=== PATIENT | male | born 1985 | race Caucasian/White ===

== ENCOUNTER 2016-11-13 01:59 | Emergency (ER) | payer BC, OTHER ==
[2016-11-13 02:45] VITALS: BP 126/78; PULSE 79; TEMP 97.9; BMI 26.6
--- NOTE | 2016-11-13 02:59 | PDOC ---
History of Present Illness - History of Present Illness Initial Comments: 11/13/16 03:14 The patient is a 31 year old male, with no significant past medical history, who presents to the emergency department for medical evaluation after waking up a couple of hours ago with lightheadedness, cough, nausea and pain to his throat and abdomen. The patient states he felt well when he went to sleep around 10:30PM. He reports eating out twice last night, slightly rare steak at his brothers house and stuffed shrimp at a restaurant. He reports feeling as if he were going to vomit before his ED arrival, however, states he just coughed. He also states he looks more pale. He also states his "chest hurts when I cough." He states he has not experienced these symptom in the past. He denies chest pain, shortness of breath, headache and dizziness. He denies fever, chills, nausea, vomit, diarrhea and constipation. He denies dysuria, frequency, urgency and hematuria. Allergies: NKDA Past surgical history: none reported Social history: He denies toxic habits. Employed as a [employer] in- [employer]. <Farnaz Luo - Last Filed: 11/13/16 03:19> <Saba Collier - Last Filed: 11/13/16 04:43> - General Chief Complaint: Cold Symptoms Stated Complaint: PAIN STOMACH AND THROAT Time Seen by Provider: 11/13/16 02:24 Past History <Farnaz Luo - Last Filed: 11/13/16 03:19> - Past Medical History Anemia: No Asthma: No Cancer: No Cardiac Disorders: No CVA: No COPD: No CHF: No Dementia: No Diabetes: No GI Disorders: No Disorders: No HTN: No Hypercholesterolemia: No Kidney Stones: No Liver Disease: No Suicide Attempt (Hx): No Seizures: No Thyroid Disease: No - Surgical History Abdominal Surgery: No Appendectomy: No Cardiac Surgery: No Cholecystectomy: No Lung Surgery: No Neurologic Surgery: No Orthopedic Surgery: No - Reproductive History Testicular Surgery: No - Psycho/Social/Smoking Cessation Hx Anxiety: No Suicidal Ideation: No Smoking History: Never smoked Have you smoked in the past 12 months: No If you are a former smoker, when did you quit?: WHEN HE WAS 13 YRS.OLD Information on smoking cessation initiated: No 'Breaking Loose' booklet given: 01/09/14 Hx Alcohol Use: No Drug/Substance Use Hx: No Substance Use Type: Alcohol Hx Substance Use Treatment: Yes (alize 10/17) <Saba Collier - Last Filed: 11/13/16 04:43> - Past Medical History Allergies/Adverse Reactions: Allergies Allergy/AdvReac Type Severity Reaction Status Date / Time Penicillins Allergy Verified 11/13/16 02:28 peanuts Allergy Uncoded 11/13/16 02:28 Home Medications: Ambulatory Orders NK [No Known Home Medication] 06/15/15 Review of Systems - Review of Systems Able to Perform ROS?: Yes Comments:: 11/13/16 03:16 GENERAL/CONSTITUTIONAL: No fever or chills. No weakness. HEAD, EYES, EARS, NOSE AND THROAT: No change in vision. No ear pain or discharge. No sore throat. CARDIOVASCULAR: (+) chest discomfort. No chest pain or shortness of breath. RESPIRATORY: (+) cough, No wheezing, or hemoptysis. GASTROINTESTINAL: (+) nausea, No vomiting, diarrhea or constipation. GENITOURINARY: No dysuria, frequency, or change in urination. MUSCULOSKELETAL: No joint or muscle swelling or pain. No neck or back pain. SKIN: No rash NEUROLOGIC: (+) lightheaded. No headache, vertigo, loss of consciousness, or change in strength/sensation. ENDOCRINE: No increased thirst. No abnormal weight change. HEMATOLOGIC/LYMPHATIC: No anemia, easy bleeding, or history of blood clots. ALLERGIC/IMMUNOLOGIC: No hives or skin allergy. <Farnaz Luo - Last Filed: 11/13/16 03:19> *Physical Exam - Vital Signs Last Vital Signs Temp Pulse Resp BP Pulse Ox 97.9 F 79 14 126/78 97 11/13/16 02:28 11/13/16 02:28 11/13/16 02:28 11/13/16 02:28 11/13/16 02:28 - Physical Exam Comments: 11/13/16 03:17 GENERAL: Awake, alert, and fully oriented, in no acute distress HEAD: No signs of trauma EYES: PERRLA, EOMI, sclera anicteric, conjunctiva clear ENT: Auricles normal inspection, hearing grossly normal, nares patent, oropharynx clear without exudates. Moist mucosa NECK: Normal ROM, supple, no lymphadenopathy, JVD, or masses LUNGS: Breath sounds equal, clear to auscultation bilaterally. No wheezes, and no crackles HEART: Regular rate and rhythm, normal S1 and S2, no murmurs, rubs or gallops ABDOMEN: (+) borborygmi. Soft, nontender, normoactive bowel sounds. No guarding , no rebound. No masses EXTREMITIES: Normal range of motion, no edema. No clubbing or cyanosis. No cords, erythema, or tenderness NEUROLOGICAL: Cranial nerves II through XII grossly intact. Normal speech, normal gait SKIN: Warm, Dry, normal turgor, no rashes or lesions noted. <Farnaz Luo - Last Filed: 11/13/16 03:19> - Vital Signs Last Vital Signs Temp Pulse Resp BP Pulse Ox 97.9 F 79 14 126/78 97 11/13/16 02:28 11/13/16 02:28 11/13/16 02:28 11/13/16 02:28 11/13/16 02:28 <Saba Collier - Last Filed: 11/13/16 04:43> ED Treatment Course - LABORATORY CBC & Chemistry Diagram: 11/13/16 03:14 11/13/16 03:14 <Saba Collier - Last Filed: 11/13/16 04:43> Medical Decision Making - Medical Decision Making 11/13/16 04:42 Pt comes with food poisonng and nausea. Not sure if it was a rxn to the shrimp that he had eaten out, or if it was the undercooked steak that he ate at his brother's home. Pt has normal labs and he was hydrated. Pt has prominent bowel sounds, but no guarding and no tenderness and he has no fever. Stable for discharge after treatment with NSS and pepcid and zofran. Pt feels better. <Saba Collier - Last Filed: 11/13/16 04:43> *DC/Admit/Observation/Transfer - Attestations Scribe Attestion: 11/13/16 03:18 Documentation prepared by Farnaz Luo, acting as medical records director for Saba Collier MD <Farnaz Luo - Last Filed: 11/13/16 03:19> - Discharge Dispostion Admit: No <Sharon Collierreen - Last Filed: 11/13/16 04:43> Diagnosis at time of Disposition: Food poisoning - Discharge Dispostion Disposition: HOME Condition at time of disposition: Stable - Patient Instructions Printed Discharge Instructions: How to Avoid Food Poisoning - Post Discharge Activity Work/School Note: Back to Work
[2016-11-13] MEDS ORDERED: ONDANSETRON 4 MG/2 ML VIAL IVPB ONE (03:00)
[2016-11-13] MEDS ORDERED: FAMOTIDINE 20 MG/50 ML IVPB 50 ML IVPB ONE ×2 (03:02→03:06)
[2016-11-13] MEDS ORDERED: SODIUM CHLORIDE 0.9% 500 ML INFUS.BAG IV ONE (03:02)
[2016-11-13] MEDS ORDERED: ONDANSETRON 4 MG/2 ML VIAL ONE (03:05)
[2016-11-13 03:26] LABS: BASOPHIL 0.7 % (0-2.0); EOSINOPHIL 2.6 % (0-4.5); MCHC 35.3 g/dl (32.0-35.9); MEAN PLT VOLUME 7.5 fl (7.5-11.1); PLATELET COUNT 188 K/MM3 (134-434); WHITE BLOOD COUNT 7.2 K/mm3 (4.0-10.0)
[2016-11-13 03:55] LABS: ALBUMIN 3.5 g/dl (3.4-5.0); ALK PHOS 51 U/L (45-117); AMYLASE 51 U/L (25-115); ANION GAP 9 (8-16); BILIRUBIN,TOTAL 0.4 mg/dL (0.2-1.0); CALCIUM 8.3 mg/dL (8.5-10.1); CO2 28 mmol/L (21-32); CREATININE 0.8 mg/dL (0.7-1.3); GLUCOSE,RANDOM 102 mg/dL (74-106); SGOT/AST 18 U/L (15-37); SGPT/ALT 30 U/L (12-78); TOT PROT 6.1 g/dl (6.4-8.2)
== END 2016-11-13 04:55 | disposition home or self-care (01) ==
LOC: JER 01:59
PROC: 3E033GC Introduction of Other Therapeutic Substance into Peripheral Vein, Percutaneous Approach (ICD-10-PCS; principal; 2016-11-13)
DX: T62.8X2A Toxic effect of other specified noxious substances eaten as food, intentional self-harm, initial encounter (principal); Y92.89 Other specified places as the place of occurrence of the external cause
CPT/HCPCS: 36415; 80053; 82150; 83690; 85025; 99282-25